=== PATIENT | female | born 1970 | race Caucasian/White ===

== ENCOUNTER → 2017-01-25 | Outpatient (CLI) | payer OTHER ==
[~2017-01-25] MED LIST: ADDERALL PO; ALBUTEROL0.83 MG/ML INH; ALBUTEROL17 GM; ALBUTEROL17 GM INH; AMBIEN10 MG; AMBIEN10 MG PO; AMLODIPINE BESYL5 MG; AMOXICILLIN500 M1 PO; BIRTH CONTROL PILL; BUPROPION HCL150 M1 PO; BUPROPION HCL150 M2; CARAFATE PO; CATAPRES0.1 MG; CATAPRES0.1 MG PO; CERTAGEN PO; CETIRIZINE HCL10 MG; CHERATUSSIN AC118 ML PO; COL-RITE250 MG PO; CYMBALTA; CYMBALTA PO; DELTASONE20 MG PO; DESYREL150 M1; ESOMEPRAZOLE SO20 MG; FEOSOL PO; FIORICET W/CODE1 CAP PO; FLEXERIL10 MG PO; GABAPENTIN400 MG PO; HYDROCODON-ACE1 EAC7; IBUPROFEN800 MG PO; IMITREX; IMITREX PO; LASIX20 MG PO; METOPROLOL SUCC25 MG PO; METOPROLOL SUCC50 MG; MOBIC PO; NEXIUM PO; NO MEDICATIONS; OXYCODON HCL-1 UDTA1 PO; PAXIL PO; PERCOCET 10/3251 TAB; PHENERGAN PO; PHENERGAN W/CO120 ML PO; PHENTERMINE; PREDNISONE PO; PRILOSEC PO; PROZAC40 MG; SEROQUEL400 MG; SUMATRIPTAN SU100 MG; SYMBICORT; SYMBICORT INH; TESSALON200 MG PO; TIZANIDINE HCL4 M1 PO; TOPAMAX PO; TOPAMAX50 MG PO; TYLOX 5/500 CAP1 CAP PO; VALACYCLOVIR500 MG; VERAPAMIL ER120 M1 PO; VIBRAMYCIN100 M1 PO; VICODIN 5/500 T1 TAB PO; VIT B-12 PO; ZANAFLEX; ZITHROMAX; ZOMIG ZMT5 MG/TAB PO; ZOMIG5 MG/SPRAY PO; ZOVIRAX200 M1 PO
--- NOTE | ~2017-01-25 | CR71 ---
[facility] A Service of [facility] & [facility] RADIOLOGY TEXT RESULTS PATIENT: NATASHA REYEZ LOCATION: [facility] : 68 UNIT #: [id number] AGE: [address]: Sakshi Gray MD SEX: F ORDER DR: [id number] [facility] [address] [place], [place] [address] [id number] O MR#: [id number] Acc #: [id number] NAME: NATASHA REYEZ. : 1970 SEX: F STUDY DATE/TIME: 01/25/2017 8:14 UNIT: [facility] ROOM: STUDY DESCRIPTION: CR Chest Single View Attending Physician: Sakshi Gray M.D. Referring Physician: Sakshi Gray M.D. Ordering Physician: Sakshi Gray M.D. Primary Care Physician: Solomon Hernandez Pa-C MEDICAL IMAGING REPORT This report is preliminary unless electronic signature is present EXAM Portable chest, 01/25/2017. HISTORY Shortness of breath, wheezing and cough for 2 years, worsening in the last 12 months. Benign essential hypertension. Asthma. FINDINGS A single AP portable view of the chest shows both lungs to be clear. The heart is normal in size. The mediastinal contour is normal. No significant bone abnormalities are seen. IMPRESSION Normal portable chest. Dictated by... Ben Jacinto M.D. THIS IS AN ELECTRONICALLY VERIFIED REPORT Ben Jacinto M.D. at 01/26/2017 2:10 PM CRISTIAN/saniya TD: 01/25/2017 14:16 JOB #: [id number] MEDICAL IMAGING REPORT Page 1 of 1 COPY
== END | disposition home or self-care (01) ==
LOC: CRC 07:28
DX: J44.9 Chronic obstructive pulmonary disease, unspecified (principal)
CPT/HCPCS: 71010